=== PATIENT | female | born 1945 | race Caucasian/White ===

== ENCOUNTER → 2021-09-14 | Outpatient (CLI) | payer MEDICARE ==
[~2021-09-14] MED LIST: BARIUM SULFATE 40% (APPLE) 148 GM PWD. PO ONE
--- NOTE | 2021-09-14 13:54 | RAD ---
EXAMINATION: DG VIDEO SWALLOW STUDY 09/14/2021 12:53 PM HISTORY: Dysphagia, history of stroke COMPARISON: None. TECHNIQUE: The patient was observed swallowing various consistencies of barium under intermittent flu oroscopy. FINDINGS: No definite aspiration. There was deep penetration with thin barium from a spoon and nectar thick fro m a spoon. No significant change with chin tuck. Transient shallow penetration with honey thick consi stency. No penetration but pooling of residuals with pudding consistency. IMPRESSION: Deep penetration with thin barium from a spoon and with nectar thick from a spoon. Poolin g of residuals with pudding consistency. Please see the speech pathologist's report for details. Electronically signed by: Salud Rainey MD (09/14/2021 1:52 PM) [id number]
== END | disposition home or self-care (01) ==
LOC: RAD 12:29
PROVIDERS: ATTEND Family Medicine
DX: R13.10 Dysphagia, unspecified (principal); Z86.73 Personal history of transient ischemic attack (TIA), and cerebral infarction without residual deficits; Z88.0 Allergy status to penicillin; Z88.8 Allergy status to other drugs, medicaments and biological substances
CPT/HCPCS: 74230; 92611-GN